=== PATIENT | male | born 1960 | race Two or more races ===

== ENCOUNTER 2020-08-06 22:43 | Emergency (ER) | payer SELFPAY ==
[~2020-08-06] VITALS: Ht 154.9 cm; Wt 71.8 kg
[2020-08-06 23:23] LABS: BASO % 0 % (0-3); EOS # 0.1 x10^3/uL (0.0-0.7); EOS % 2 % (0-3); HEMATOCRIT 31.2 % (39.0-53.0); HEMOGLOBIN 10.4 g/dL (13.0-17.5); LYMPH # 0.7 x10^3/uL (1.0-4.8); LYMPH % 17 % (24-48); MEAN CORPUSCULAR HEMOGLOBIN 28 pg (25-35); MEAN CORPUSCULAR HGB CONC 33 g/dL (31-37); MEAN CORPUSCULAR VOLUME 86 fL (79-100); MONO # 0.4 x10^3/uL (0.0-1.1); MONO % 10 % (0-9); NEUT % 71 % (31-73); PLATELET COUNT 60 x10^3/uL (140-400); RED BLOOD COUNT 3.65 x10^6/uL (4.30-5.70); RED CELL DISTRIBUTION WIDTH 17.4 % (11.5-14.5); WHITE BLOOD COUNT 4.3 x10^3/uL (4.0-11.0)
[2020-08-06 23:23] LABS: CLARITY,URINE BLOODY; COLOR,URINE RED
[2020-08-06 23:28] LABS: RBC,URINE TNTC /HPF (0-2)
[2020-08-06 23:29] LABS: CALCIUM 8.4 mg/dL (8.5-10.1); CREATININE 0.7 mg/dL (0.7-1.3); GFR 114.6; POTASSIUM 3.8 mmol/L (3.5-5.1)
[2020-08-06 23:29] LABS: BACTERIA,URINE MODERATE /HPF (0-FEW); WBC,URINE 20-40 /HPF (0-4)
[2020-08-06 23:35] LABS: ALBUMIN 3.2 g/dL (3.4-5.0); ALBUMIN/GLOBULIN RATIO 0.7 (1.0-1.7); TOTAL BILIRUBIN 1.6 mg/dL (0.2-1.0); TOTAL PROTEIN 8.1 g/dL (6.4-8.2)
--- NOTE | 2020-08-06 23:36 | PHYS DOC ---
Past Medical History Past Medical History: Hypertension, Other Additional Past Medical Histor: PROSTATE (WINSOME LEMONS [employer]) Past Surgical History: No Surgical History (WINSOME LEMONS [employer]) Smoking Status: Never Smoker Alcohol Use: None Additional Information: PATIENT REPORTS BEING A HEAVY DRINKER UNTIL 6 MONTHS AGO. (WINSOME LEMONS [employer]) General Adult EDM: Chief Complaint: FLANK PAIN HPI: HPI: Patient is a 60 year old male who presents with left-sided abdominal pain that is worse when urinating and also he has blood in his urine. Patient states that there is pieces of smell like stool in his urine when he urinates it. He states that when he goes to urinate he feels air go through his urethra before the urine and blood come through. Patient denies nausea, vomiting, diarrhea, fever, headache, dizziness, STD, penile discharge. Patient at this time states he has no pain. Patient states he stopped drinking alcohol 6 months ago. He states his other history is hypertension, enlarged prostate, gastritis. Patient denies any flank pain. He states that he does have some right-sided low back pain that comes and goes. (CRISTO,WINSOME Lopes [employer]PER[employer]) Review of Systems: Review of Systems: Constitutional: Denies fever or chills. [] Eyes: Denies change in visual acuity. [] HENT: Denies nasal congestion or sore throat. [] Respiratory: Denies cough or shortness of breath. [] Cardiovascular: Denies chest pain or edema. [] GI: + Left lower abdominal pain, denies nausea, vomiting, bloody stools or diarrhea. [] : Denies dysuria. [] Musculoskeletal: Right lower back pain or denies joint pain. [] Integument: Denies rash. [] Neurologic: Denies headache, focal weakness or sensory changes. [] Endocrine: Denies polyuria or polydipsia. [] Lymphatic: Denies swollen glands. [] Psychiatric: Denies depression or anxiety. [] (WINSOME LEMONS [employer]) Heart Score: Risk Factors: Risk Factors: DM, Current or recent (<one month) smoker, HTN, HLP, family history of CAD, obesity. Risk Scores: Score 0 - 3: 2.5% MACE over next 6 weeks - Discharge Home Score 4 - 6: 20.3% MACE over next 6 weeks - Admit for Clinical Observation Score 7 - 10: 72.7% MACE over next 6 weeks - Early Invasive Strategies (WINSOME LEMONS APRN) Current Medications: Current Medications Medications (Trade) Dose Ordered Sig/David Start Time Stop Time Status Last Admin Dose Admin Sodium Chloride 1,000 ml @ 1,000 mls/hr 1X ONCE 08/06/20 23:15 08/07/20 00:14 UNV (WINSOME LEMONS APRN) Allergies: Allergies: Allergies Coded Allergies Type Severity Reaction Last Updated Verified No Known Drug Allergies 08/06/20 No (WINSOME LEMONS APRN) Physical Exam: PE: Constitutional: Well developed, well nourished, no acute distress, non-toxic appearance. [] HENT: Normocephalic, atraumatic, bilateral external ears normal, oropharynx moist, no oral exudates, nose normal. [] Eyes: PERRLA, EOMI, conjunctiva normal, no discharge. [] Neck: Normal range of motion, no tenderness, supple, no stridor. [] Cardiovascular:Heart rate regular rhythm, no murmur [] Lungs & Thorax: Bilateral breath sounds clear to auscultation [] Abdomen: Bowel sounds normal, soft, no tenderness, no masses, no pulsatile masses. [] Skin: Warm, dry, no erythema, no rash. [] Back: No tenderness, no CVA tenderness. [] Extremities: No tenderness, no cyanosis, no clubbing, ROM intact, no edema. [] Neurologic: Alert and oriented X 3, normal motor function, normal sensory function, no focal deficits noted. [] Psychologic: Affect normal, judgement normal, mood normal. [] Normal Physical Exam (WINSOME LEMONS APRN) EKG: EKG: [] ([facility]) Radiology/Procedures: Radiology/Procedures: [] Impression: [facility] [address] [place] [address] IMAGING REPORT Signed PATIENT: KOBY PALOMINO ACCOUNT: [id number] : 1960 LOCATION: ER AGE: 60 SEX: M EXAM STATUS: REG ER ORD. PHYSICIAN: WINSOME LEMONS APRN REASON: LEFT ABD PAIN, BLOOD IN URINE PROCEDURE: CT ABDOMEN PELVIS WO CONTRAST Exam: CT abdomen/pelvis without contrast Indication: Left abdominal pain, blood in urine Comparison: None Technique: Helical CT imaging performed of the abdomen and pelvis without contrast. Sagittal and coronal reformats were obtained. One or more of the following individualized dose reduction techniques were utilized for this examination: 1. Automated exposure control 2. Adjustment of the mA and/or kV according to patient size 3. Use of iterative reconstruction technique. Findings: Lower chest: Motion artifact in the lung bases. There are 2 nodular opacities in the right lower lobe measuring 7 and 5 mm (image 35, series 2). The heart is enlarged. Liver: Liver is normal in size with a nodular surface, consistent with cirrhosis. Gallbladder/Biliary Tree: Normal. Pancreas: Normal. Spleen: Spleen is enlarged measuring 17.6 cm craniocaudally. Adrenal Glands: Normal. Kidneys/Ureters/Bladder: The kidneys are normal in size. No urolithiasis or hydronephrosis. There is mass effect on the left kidney from the enlarged spleen. A 3.2 cm exophytic cyst in the inferior right renal pole has slightly greater than fluid density and is likely a minimally complicated cyst. Ureters are normal. Large amount of gas in the urinary bladder. There is a 3.6 x 1.9 cm area of wall thickening and inflammation along the superior left side of the urinary bladder. There a few foci of within this area that may be in the wall of the urinary bladder or in immediately adjacent inflamed sigmoid diverticula. There is focal loss of fat planes between the sigmoid colon and the bladder in this region. Reproductive Organs: Prostate gland is normal. Stomach, small bowel, and colon: Small hiatal hernia. Small bowel and appendix are normal. There is sigmoid diverticulosis with wall thickening and surrounding inflammation, consistent with acute diverticulitis. Vasculature: Abdominal aorta is normal in caliber. Mild calcified aortoiliac atherosclerosis. Lymph Nodes: No lymphadenopathy. Peritoneum and retroperitoneum: Small of free fluid along the right paracolic gutter. No pneumoperitoneum. Bones: No acute osseous abnormality. Miscellaneous: There is degenerative joint disease of the sacroiliac joints. Impression: 1. Acute sigmoid diverticulitis. There is focal loss of fat planes between the sigmoid colon and bladder and an area of suspected bladder wall thicken ing/inflammation with some foci of gas that could be within sigmoid diverticula or within the wall of the bladder. Additionally there is a large volume of gas in the urinary bladder. In the absence of recent instrumentation to the bladder, this is suspicious for colovesicular fistula and/or possible intramural abscess in the urinary bladder. CT cystogram with IV contrast may be useful to further evaluate. 2. No nephrolithiasis or hydronephrosis. 3. Cirrhosis with moderate splenomegaly. 4. Two nodular opacities in the right lower lobe measuring up to 7 mm. Consider follow-up CT in 3-6 months to ensure resolution. Electronically signed by: Jennifer Montaño MD (08/07/2020 12:14 AM) [id number] DICTATED and SIGNED BY: JENNIFER MONTAÑO MD DATE: 08/06/20 [id number] (WINSOME LEMONS APRN) Course & Med Decision Making: Course & Med Decision Making Pertinent Labs and Imaging studies reviewed. (See chart for details) See HPI. Abdomen is soft and nontender. No CVA tenderness. Alert and oriented x4. Ambulatory with a steady gait. Speaks in full clear sentences. Skin pink warm and dry. Again denies any pain at this time. Patient tells me that when he begins to urinate he can feel air passed through his urethra before he actually starts to urinate. States the only time he has pain is when he urinates. CT s hows colovesicular fistula, splenomegaly, cirrhosis of the liver and acute diverticulitis. Lab work shows a anemia, thrombocytopenia. Again he is a former alcoholic that states his last drink was 6 months ago. He states that today he did have a nonalcoholic beer. Patient is not septic at this time. Patient is given Rocephin IV 1 g and vancomycin IV 1 g. A rapid Covid is done. I have also ordered blood cultures and a lactic acid. Patient will be transferred to to another facility for continuation of care as we do not have urology at this facility. I have gone into the room with Dr. Hill and we have spoken to the patient's daughter as she states her understanding. Patient's daughter is asking that we use a cardiology rn phone to explain all that to him because she does not know that she can explain it [facility]. Dr. Hill is to use the cardiology rn phone to explain what is going on to the patient and get him transferred to another facility for continuation of care. Diagnosis: 1) colovesicular fistula 2) acute diverticulitis 3) cirrhosis of the liver 4) anemia 5) thrombocytopenia 6) splenomegaly 7) former alcoholism of which she stopped drinking 6 months ago [] (WINSOME LEMONS [employer]) Course & Med Decision Making Concern for acute diverticulitis with most likely colovesicular fistula (per history) +/- bladder abscess, in a hemodynamically stable male, with UTI and hematuria, showing no signs of sepsis. Labs also show normocytic anemia and thrombocytopenia, no prior for comparison. CT shows cirrhosis and splenomegaly. I evaluated patient and spoke with daughter. Both declined cardiology rn services and daughter is translating. Patient with history of hypertension, BPH and GERD (but takes no routine medications). Stop drinking alcohol 6 months ago due to a brief episode of hematuria that spontaneously resolved. States 2 months ago he was seen at a clinic at [address] [place] [address] and was told he had "low blood levels." Has no PSH, no recent cystoscopy or urethral procedure. Patient started on broad-spectrum antibiotics in the ED. I spoke with [facility], Dr. López, who does recommend transfer for higher level of care with urology and possible colorectal surgery, likely after cystoscopy/endoscopy. I spoke with Mary Jane (male rn) at [place] [facility], has no beds available due to being on high. not accepting patients . Navya, transfer nurse at [facility], reports all [facility] facilities with urology are at max capacity and not accepting patients. I spoke with Dr. Matthew Castillo, [facility], all facilities are at max capacity and not accepting patients. [facility]mu at [facility] called house nursing supervisor riveting, hospital is at maximum capacity and not accepting patients. D/w Kostas Pepper, director of clinical operations at [facility]. He spoke to his urologist Dr. Mckeon who stated urology would not be involved in this type of surgery. He spoke to colorectal surgeon Dr. Denton. Pt accepted by Dr. Tesfaye Ontiveros at [facility], I gave report to Daisy Beyer, [place]. Pt stable at time for transfer and agrees with this plan. Life-threatening processes have been considered. Life/limb-threatening differential includes but is not limited to, aortic dissection, aortic aneurysm, acute coronary syndrome, surgical abdomen (appendicitis, cholecystitis, ischemic bowel, strangulated hernia, etc), bowel obstruction or volvulus, bladder outlet obstruction, gastrointestinal bleeding, inflammatory bowel disease, peptic ulcer disease, ACS/CAD, sepsis, diverticular disease, ureterolithiasis, nephrolithiasis, testicular torsion, ectopic , vaginal hemorrhage, or genitourinary infection. I have spoken with the patient and/or caregivers. I have explained the patient's condition, diagnosis and treatment plan based on the information available to me at this time. I have answered the patient's and/or caregivers questions and answered any concerns. The patient and/or caregivers have as good an understanding of the patient's diagnosis, condition and treatment plan as can be expected at this point. The patient has been stabilized within the capability of the emergency department. The patient will be transported for further care and management or will be moved to an observation or inpatient service. I have communicated with the staff or medical practitioner taking over this patient's care. (MARSHALL HILL DO) Dragon Disclaimer: Dragon Disclaimer: This electronic medical record was generated, in whole or in part, using a voice recognition dictation system. (WINSOME LEMONS APRN) Departure Departure Impression: Primary Impression: Colovesical fistula Additional Impressions: Urinary tract infection Qualified Codes: N39.0 - Urinary tract infection, site not specified; R31.9 - Hematuria, unspecified Anemia Qualified Codes: D64.9 - Anemia, unspecified Thrombocytopenia Alcoholism Cirrhosis Qualified Codes: K70.30 - Alcoholic cirrhosis of liver without ascites Spleen enlargement Diverticulitis Disposition: 05 DC/TRF OTHER TYPE INSTITUTI ([facility], Dr. Tesfaye Ontiveros) Condition: STABLE Referrals: NO PCP (PCP) WINSOME LEMONS APRN Aug 06, 2020 23:36 MARSHALL HILL DO Aug 07, 2020 01:42
[2020-08-06] MEDS ORDERED: cefTRIAXone IV Push 1 GM VIAL. IVP ONE (23:45)
[2020-08-06] MEDS ORDERED: IV NORMAL SALINE 1000ML BAG 1,000 ML IV ONE (23:45)
--- NOTE | 2020-08-07 00:17 | RAD ---
Exam: CT abdomen/pelvis without contrast Indication: Left abdominal pain, blood in urine Comparison: None Technique: Helical CT imaging performed of the abdomen and pelvis without contrast. Sagittal and clarita nal reformats were obtained. One or more of the following individualized dose reduction techniques were utilized for this examinat ion: 1. Automated exposure control 2. Adjustment of the mA and/or kV according to patient size 3. Use of iterative reconstruction technique. Findings: Lower chest: Motion artifact in the lung bases. There are 2 nodular opacities in the right lower lobe measuring 7 and 5 mm (image 35, series 2). The heart is enlarged. Liver: Liver is normal in size with a nodular surface, consistent with cirrhosis. Gallbladder/Biliary Tree: Normal. Pancreas: Normal. Spleen: Spleen is enlarged measuring 17.6 cm craniocaudally. Adrenal Glands: Normal. Kidneys/Ureters/Bladder: The kidneys are normal in size. No urolithiasis or hydronephrosis. There is mass effect on the left kidney from the enlarged spleen. A 3.2 cm exophytic cyst in the inferior righ t renal pole has slightly greater than fluid density and is likely a minimally complicated cyst. Uret ers are normal. Large amount of gas in the urinary bladder. There is a 3.6 x 1.9 cm area of wall thickening and infla mmation along the superior left side of the urinary bladder. There a few foci of within this area cathy t may be in the wall of the urinary bladder or in immediately adjacent inflamed sigmoid diverticula. There is focal loss of fat planes between the sigmoid colon and the bladder in this region. Reproductive Organs: Prostate gland is normal. Stomach, small bowel, and colon: Small hiatal hernia. Small bowel and appendix are normal. There is s igmoid diverticulosis with wall thickening and surrounding inflammation, consistent with acute divert iculitis. Vasculature: Abdominal aorta is normal in caliber. Mild calcified aortoiliac atherosclerosis. Lymph Nodes: No lymphadenopathy. Peritoneum and retroperitoneum: Small of free fluid along the right paracolic gutter. No pneumoperito neum. Bones: No acute osseous abnormality. Miscellaneous: There is degenerative joint disease of the sacroiliac joints. Impression: 1. Acute sigmoid diverticulitis. There is focal loss of fat planes between the sigmoid colon and jessenia dder and an area of suspected bladder wall thickening/inflammation with some foci of gas that could b e within sigmoid diverticula or within the wall of the bladder. Additionally there is a large volume of gas in the urinary bladder. In the absence of recent instrumentation to the bladder, this is suspi cious for colovesicular fistula and/or possible intramural abscess in the urinary bladder. CT cystogr am with IV contrast may be useful to further evaluate. 2. No nephrolithiasis or hydronephrosis. 3. Cirrhosis with moderate splenomegaly. 4. Two nodular opacities in the right lower lobe measuring up to 7 mm. Consider follow-up CT in 3-6 months to ensure resolution. Electronically signed by: Jennifer Montaño MD (08/07/2020 12:14 AM) [id number]
[2020-08-07 00:20] LABS: PROTHROMBIN TIME PATIENT 19.3 SEC (11.7-14.0)
[2020-08-07] MEDS ORDERED: VANCOMYCIN 1GM IVPB FOR OMNI 250 ML IV ONE (00:45)
[2020-08-07 04:30] VITALS: BP 158/68
--- NOTE | 2020-08-08 09:36 | NUR ---
IP: Pt had been transferred to [facility]. IP, Sis, at [facility] notified of COVID + test and faxed results to her.
== END 2020-08-07 05:02 | disposition short-term general hospital (02) ==
LOC: ER 22:43
DX: N39.0 Urinary tract infection, site not specified (principal); U07.1 COVID-19; R31.9 Hematuria, unspecified; D69.6 Thrombocytopenia, unspecified; K70.30 Alcoholic cirrhosis of liver without ascites; K57.92 Diverticulitis of intestine, part unspecified, without perforation or abscess without bleeding; R16.1 Splenomegaly, not elsewhere classified; N32.2 Vesical fistula, not elsewhere classified; I10 Essential (primary) hypertension; F10.20 Alcohol dependence, uncomplicated; Y90.9 Presence of alcohol in blood, level not specified
CPT/HCPCS: 36415; 74176; 80053; 81001; 83605; 83690; 83735; 85025; 85610; 87040; 87086; 87426; 96361; 96365; 96367; 96375; 99285; J0696; J3370; J3490; J7030; U0003